=== PATIENT | female | born 2005 | race Caucasian/White ===

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

== ENCOUNTER 2023-04-24 00:15 | Emergency (ER) | payer OTHER, SELFPAY ==
[2023-04-24 00:16] VITALS: BP 122/71; PULSE 109; RESP 16; TEMP 36.2; O2SAT 99; BMI 22.0
--- NOTE | 2023-04-24 01:10 | EDS_ITS ---
HPI HPI - GI History of Present Illness Chief Complaint: Abd Pain Detail of Chief Complaint: Abdominal cramping. Nausea, vomiting and diarrhea. Informant: patient Abdominal Pain/Flank Pain Onset: Today Context: Gradual Onset Timing: Continuous Quality: Cramping Location: Diffuse Current Severity: Mild Maximum Severity: Mild Worsened by: Nothing Relieved by: Nothing Nausea/Vomiting/Emesis GI Symptom: Positive for Nausea and Vomiting Onset: Today Severity: Mild Diarrhea/Melena/Hematochezia GI Symptom: Positive for Diarrhea; Negative for Melena or Hematochezia Onset: Today Stool Quality: Positive for Loose Severity: Mild Associated Symptoms Associated Symptoms: Negative for Dysuria, Frequency, Hematuria or Urgency Narrative Narrative: 18-year-old female history of migraine headaches and anxiety. States she was called into work today. They are understaffed. She has been stressed all day and started the morning of the migraine headache. She developed abdominal cramping. Nausea, vomiting and diarrhea. [place] worse after eating pizza for dinner. Denies any dysuria. She does not have menstrual cycles and has not had one for more than a year due to a control implant. She has never been . G0, P0. She denies any vaginal bleeding or discharge. No fever. Prior similar symptoms: No Recent Illness/Hospitalization: No [facility] Medical History Nausea & vomiting Home Medications lansoprazole 15 mg capsule,delayed release (Prevacid) 15 mg PO DAILY 11/27/13 [History Last Taken 01/01/18] fexofenadine 60 mg tablet 60 mg PO DAILY 01/01/18 [History Last Taken 01/01/18] levonorgestrel 1.5 mg tablet (Take Action) 1.5 mg PO DAILY 01/01/18 [History [place] st Taken 01/01/18] ondansetron 4 mg disintegrating tablet 4 mg PO Q12H PRN PRN Nausea 01/01/18 [History Last Taken 01/01/18] rizatriptan 10 mg disintegrating tablet 10 mg PO PRN PRN bcp 01/01/18 [History Last Taken 1 Day Ago ~12/31/17] trazodone 50 mg tablet 50 mg PO QHS 01/01/18 [History Last Taken 1 Day Ago ~12/31/17] venlafaxine 37.5 mg capsule,extended release 24 hr 37.5 mg PO DAILY 01/01/18 [ History Last Taken 01/01/18] prochlorperazine maleate 10 mg tablet (Compazine) 10 mg PO TID PRN nausea and vomiting #21 tabs 11/07/22 [Rx Last Taken Unknown] omeprazole 20 mg capsule,delayed release 20 mg PO DAILY #30 CAPSULES 11/27/22 [Rx Last Taken Unknown] ondansetron 4 mg disintegrating tablet 4 mg PO Q8H PRN PRN Nausea #7 tabs 04/24/23 [Rx Last Taken Unknown] Allergy/AdvReac Type Severity Reaction Status Date / Time amoxicillin Allergy Unknown Verified 04/24/23 00:15 cat dander Allergy Itching Verified 04/24/23 00:15 amitriptyline AdvReac Other Verified 04/24/23 00:15 buspirone [From BuSpar] AdvReac Other Verified 04/24/23 00:15 cefdinir [From Omnicef] AdvReac Other Verified 04/24/23 00:15 escitalopram [From Lexapro] AdvReac Other Verified 04/24/23 00:15 fluoxetine HCl [From Prozac] AdvReac Other Verified 04/24/23 00:15 venlafaxine [From Effexor] AdvReac Other Verified 04/24/23 00:15 Social History Smoking Status: Never smoker ROS ROS ED ROS Narrative Abdominal cramping. Nausea, vomiting and diarrhea. Anxiety. Review of Systems ROS Unobtainable: Denies due to encephalopathy Constitutional Constitutional ED: Denies chills or fever(s) ENT ENT ED: Denies ear pain Cardiovascular Cardiovascular: Denies chest pain Respiratory/Chest Respiratory/Chest: Denies cough or dyspnea Gastrointestinal Gastrointestinal: Reports abdominal pain, diarrhea, nausea and vomiting; Denies constipation or melena Genitourinary Genitourinary ED: Denies dysuria or hematuria Musculoskeletal Musculoskeletal: Denies arthralgias or back pain Integumentary Denies abscess Neurologic Neurologic: Reports headache(s) Psychiatric Psychiatric: Reports anxiety Endocrine Endocrinology: Denies polydipsia Hematologic/Lymphatic Hematologic/Lymphatic: Denies easy bleeding Allergic/Immunologic Allergic/Immunologic ED: Denies mouth swelling, tongue swelling or urticaria EXAM Physical Exam Narrative Exam Narrative: Well-appearing 18-year-old female. Vital signs stable afebrile. H EENT exam unremarkable. Neck nontender no lymphadenopathy. Lungs clear to auscultation bilaterally. Heart regular rhythm no murmur. Abdomen soft, nondistended normal bowel sounds no peritoneal signs. Minimal tenderness. Not localizing. No hernia or mass. Moving all 4 extremities. Calves are nontender without edema or cords. Neurologic exam normal. No focal motor deficits. She is anxious. Const Vital Signs: 04/24/23 00:16 Temperature 97.2 F L Temperature Source Temporal Pulse Rate 109 H Respiratory Rate 16 Blood Pressure 122/71 H Blood Pressure Mean 88 Pulse Ox 99 Oxygen Delivery Method Room Air Positive well nourished and well developed; Negative for obese, cachectic or contractures General Appearance ED: well developed and NAD; Negative for cachectic, contractures or pallor Nutritional Appearance: Negative for cachectic or obese HEENT Reports moist mucous membranes normocephalic and atraumatic; Negative for trauma or tenderness Eyes PERRL and EOMs intact bilaterally General Eye ED: Negative for pale conjunctiva or scleral icterus Neck no lymphadenopathy, supple and no JVD General: Negative for tenderness Carotids: Negative for other Lymph Lymphatic: Negative for other Resp normal respiratory effort and clear to auscultation bilaterally Effort and Inspection: Negative for respiratory distress Auscultation: Negative for rales, rhonchi or wheezes Cardio regular rate, regular rhythm, S1 normal heart sound, S2 normal heart sound and no murmurs Rate: Negative for bradycardia or tachycardic Rhythm: Negative for abnormal rhythm GI non-distended and no masses; Negative for non-tender Inspection: Negative for abdominal distention Auscultation: normoactive bowel sounds Palpation: tender; Negative for guarding, rigid, hepatomegaly, splenomegaly, hernia, mass, pulsatile mass or rebound tenderness present Back/Spine no CVA tenderness General Back: Negative for CVA tenderness Cervical Spine: Negative for cervical spine tenderness Thoracic Spine / Upper Back: Negative for thoracic spinal tenderness Lumbar Spine / Lower Back: Negative for lumbar spinal tenderness Coccyx: Negative for other Extremity full ROM General Extremety ED: Negative for edema or tenderness General Extremity: Negative for edema Neuro CN's II-XII intact bilaterally and moves all extremities Sensorium / Orientation: alert, oriented to person, oriented to place and oriented to time; Negative for orientation impaired, confused, lethargic or stuporous Sensory Exam: No sensory level loss detected Motor Exam: strength 5/5 throughout Psych mental status grossly normal and thought process normal Appearance: Negative for other Attitude: No agitated Mood & Affect: anxious; Negative for depressed or tearful Skin no wounds General Skin Exam: Negative for jaundice or pallor Lesions: no lesions Rashes: no rashes MDM MDM MDM Narrative Medical decision making narrative: Patient is 18-year-old with abdominal cramping with nausea, vomiting and diarrhea. This may be second anxiety. Screening labs to be obtained. Treated with Zofran for nausea. IV fluids. Repeat exam at 2:07 AM doing well. Abdomen benign. We went over all of her test results. She will be discharged to home. Zofran as needed for nausea. Fluids and rest. Follow-up as needed. History & Record Review Discussion w/independent historian: Patient and Friend Lab Data Attestation: I reviewed the patient's lab results. Lab results narrative: CBC unremarkable. White count of 9. H&H 13.2 and 38. Platelets 273. CMP shows a potassium of 3.3. Gap is 6. Normal BUN and creatinine is 0.8. Liver enzymes normal. Glucose 120. Serum test negative. Urinalysis normal. No infection. Labs: Laboratory Results - last 24 hr 04/24/23 04/24/23 01:23 01:45 WBC 9.0 RBC 4.41 Hgb 13.2 Hct 38.7 MCV 87.8 MCH 29.9 MCHC 34.1 RDW Std Deviation 39.4 RDW Coeff of Chris 12.3 Plt Count 273 MPV 10.1 Immature Gran % (Auto) 0.100 Neut % (Auto) 67.2 Lymph % (Auto) 25.9 [place] % (Auto) 5.1 Eos % (Auto) 1.0 Baso % (Auto) 0.7 Absolute Neuts (auto) 6.0 Absolute Lymphs (auto) 2.32 Nucleated RBC % 0 Sodium 141 Potassium 3.3 L Chloride 110 H Carbon Dioxide 25.0 Anion Gap 6 BUN 15 Creatinine 0.86 Estim Creat Clear Calc 74.95 Est GFR (MDRD) Af Amer 108 Est GFR (MDRD) Non-Af 89 BUN/Creatinine Ratio 17.4 Glucose 120 H Calcium 9.8 Total Bilirubin 0.30 AST 13 L ALT 25 Alkaline Phosphatase 79 Total Protein 7.2 Albumin 4.1 Globulin 3.1 Albumin/Globulin Ratio 1.3 Lipase 25 Serum , Qual NEGATIVE Urine Color Yellow Urine Clarity Clear Urine pH 8.0 Ur Specific [place] 1.010 Urine Protein Negative Urine Glucose (UA) Normal Urine Ketones Negative Urine Occult Blood Negative Urine Nitrite Negative Urine Bilirubin Negative Urine Urobilinogen Normal Ur Leukocyte Esterase 25 H Urine RBC 0 SEEN Urine WBC 0-5 SEEN Ur Squamous Epith Cells 5-10 SEEN Urine Bacteria RARE Urine Mucus 0 SEEN Discharge Plan Triage Chief Complaint: Abd Pain ED Provider: Haroldo Almaguer Dx/Rx/DC Orders Clinical Impression: Vomiting and diarrhea, Anxiety, Abdominal pain Instructions: ED Anxiety Reaction, ED Vomiting and Diarrhea ... Prescriptions: New ondansetron 4 mg tablet,disintegrating 4 mg PO Q8H PRN PRN (Reason: Nausea) Qty: 7 0RF No Action lansoprazole [Prevacid] 15 MG capsule 15 mg PO DAILY venlafaxine 37.5 MG capsule 37.5 mg PO DAILY trazodone 50 MG tablet 50 mg PO QHS fexofenadine 60 MG tablet 60 mg PO DAILY rizatriptan 10 MG tablet,disintegrating 10 mg PO PRN PRN (Reason: bcp) ondansetron 4 MG tablet 4 mg PO Q12H PRN PRN (Reason: Nausea) levonorgestrel [Take Action] 1.5 MG tablet 1.5 mg PO DAILY prochlorperazine maleate [Compazine] 10 mg tablet 10 mg PO TID PRN (Reason: nausea and vomiting) Qty: 21 0RF omeprazole [omeprazole] 20 mg capsule,delayed release(DR/EC) 20 mg PO DAILY Qty: 30 0RF Primary Care Provider: Sharmin Melednez Referrals: Sharmin Melendez MD [Primary Care Provider] - 3-5 Days if not improving Activity Restrictions/Additional Instructions: Plenty of fluids and rest. Follow-up with your doctor as needed. Tylenol and/or Motrin for pain. Zofran as needed for nausea. Disposition Disposition: Home, Self Care
[2023-04-24] MEDS: Ondansetron 4 MG/2 ML Vial IV (01:20)
[2023-04-24] MEDS: 0.9% Normal Saline (1000mL) 1,000 ML 1000 ML IV (01:20)
[2023-04-24 01:29] LABS: Absolute Lymphocyte Count 2.32 X10^3/uL (0.83-4.51); Basophil# 0.06 X10^3/uL; Basophil% 0.7 % (0-1); Eosinophil# 0.09 X10^3/uL; Hematocrit 38.7 % (37-47); Hemoglobin 13.2 g/dL (12.0-15.0); Lymphocyte # 2.32 X10^3/ul (0.83-4.51); Lymphocyte % 25.9 % (19-41); Mean Corp Hgb Conc 34.1 g/dL (32-36); Mean Corpuscular Hgb 29.9 pg (27.0-32.0); Mean Corpuscular Volume 87.8 fL (81-99); Mean Platelet Vol. 10.1 fl (6.2-12.0); Monocyte# 0.46 X10^3/uL; Monocyte% 5.1 % (0-10); NRBC Flagged by Analyzer 0 % (0-5); Neutrophil # 6.02 X10^3/uL (2.7-7.7); Neutrophil % 67.2 % (47-70); Platelet Count 273 K/mm3 (150-450); RBC Distribution Width CV 12.3 % (11.6-14.6); RBC Distribution Width SD 39.4 fl (35.1-43.9); Red Blood Count 4.41 M/mm3 (4.2-5.4)
[2023-04-24 01:38] LABS: Internal QC Validated? YES +Cl - CLEAR BKGD; Pregnancy, Serum, hCG Quali. NEGATIVE Negative
[2023-04-24 01:46] LABS: ALB/GLOB Ratio 1.3 RATIO (0.9-2.4); AST(SGOT) 13 U/L (15-37); Alanine Aminotransfer ALT/SGPT 25 U/L (13-56); Albumin, Serum 4.1 g/dL (3.2-5.0); Alkaline Phosphatase 79 U/L (45-117); Anion Gap 6 (5-15); BUN 15 mg/dL (7-18); BUN/Creat Ratio 17.4 RATIO (10-20); Calcium,Total 9.8 mg/dL (8.5-10.1); Chloride 110 mmol/L (98-107); Creatinine, Serum 0.86 mg/dL (0.55-1.02); EST Glomerular Filtration Rate 89 mL/min (>60); Est Glom Filt Rate - Afr Amer 108 mL/min (>60); Estimated Creatinine Clearance 74.95 ml/min; Globulin 3.1 g/dL (2.2-4.2); Glucose 120 mg/dL (74-106); Lipase 25 U/L (13-75); Potassium 3.3 mmol/L (3.5-5.1); Protein, Total 7.2 g/dL (6.4-8.2); Sodium Level 141 mmol/L (136-145)
[2023-04-24 01:50] LABS: Color, Urine Yellow (Yellow); Glucose, Dipstick Normal (Normal); Ketone-Dipstick Negative (Negative); Leukocyte Esterase-Dipstick 25 /ul (Negative); Mucous, Urine 0 SEEN /hpf (<or=2+); Nitrite-Dipstick Negative (Negative); Occult Blood-Urine Negative /ul (Negative); Protein-Dipstick Negative (Negative); Red Blood Cells-Urine 0 SEEN /hpf (0-5); Urine Bilirubin Dipstick Negative (Negative); Urine Clarity Clear (Clear); Urine Urobilinogen Normal (Normal)
[2023-04-24 01:56] LABS: Bacteria RARE /hpf (None Seen); Squamous Epithelial Cells - UA 5-10 SEEN /hpf (5-10); White Blood Cells 0-5 SEEN /hpf (0-5)
[2023-04-24 02:27] VITALS: BP 114/63; PULSE 77; RESP 18; O2SAT 99
== END 2023-04-24 02:29 | disposition home or self-care (01) ==
PROVIDERS: Emergency Provider Emergency Medicine; PCP Internal Medicine; Visit Provider Emergency Medicine
DX: R19.7 Diarrhea, unspecified (principal); F41.9 Anxiety disorder, unspecified; R10.9 Unspecified abdominal pain; R11.10 Vomiting, unspecified; Z79.3 Long term (current) use of hormonal contraceptives
CPT/HCPCS: 80053; 81001; 83690; 84703; 85025; 96361; 96374; 99283; J7030; J2405

== ENCOUNTER 2024-02-16 15:51 | Emergency (ER) | payer OTHER, SELFPAY ==
[2024-02-16 15:52] VITALS: BP 126/77; PULSE 78; RESP 15; TEMP 36.6; O2SAT 99; BMI 21.4
--- NOTE | 2024-02-16 16:19 | EX.ED.UPPERE ---
HPI History of Present Illness HPI Narrative: Patient presents with pain to her left wrist that became worse today. Patient states she has had pain in her left breast for the past few months. Patient states that today she moved and the pain became severe. Patient states the pain is sharp. Patient states it is worse with movement. Patient states it is mainly over the dorsal aspect of her left wrist. Patient states if she moves her left thumb it also causes pain down into the dorsum of her left wrist. Patient denies any direct trauma or injury. Patient states she feels a snapping sensation in her thumb when she moves it. Patient states her pain is better with rest. Patient denies any paresthesias or weakness. Chief Complaint: Upper Extremity Injury Informant: patient Onset/Context/Timing Onset: Month(s) Context: Gradual Onset Timing: Continuous Quality of Pain: Sharp Location: Left wrist Worsened by: Movement Relieved by: Rest Associated Symptoms Associated Symptoms: Negative for Parasthesia, Weakness or Loss of Funtion [facility] Medical History Nausea & vomiting no medical history Home Medications ?Medication ?Instructions ?Recorded ?Last Taken ?Type lansoprazole 15 mg capsule,delayed 15 mg PO DAILY 11/27/13 01/01/18 History release (Prevacid) fexofenadine 60 mg tablet 60 mg PO DAILY 01/01/18 01/01/18 History levonorgestrel 1.5 mg tablet (Take 1.5 mg PO DAILY 01/01/18 01/01/18 History Action) ondansetron 4 mg disintegrating 4 mg PO Q12H PRN PRN Nausea 01/01/18 01/01/18 History tablet rizatriptan 10 mg disintegrating 10 mg PO PRN PRN bcp 01/01/18 1 Day Ago History tablet ~12/31/17 trazodone 50 mg tablet 50 mg PO QHS 01/01/18 1 Day Ago History ~12/31/17 venlafaxine 37.5 mg 37.5 mg PO DAILY 01/01/18 01/01/18 History capsule,extended release 24 hr prochlorperazine maleate 10 mg 10 mg PO TID PRN nausea and 11/07/22 Unknown Rx tablet (Compazine) vomiting #21 tabs omeprazole 20 mg capsule,delayed 20 mg PO DAILY #30 CAPSULES 11/27/22 Unknown Rx release ondansetron 4 mg disintegrating 4 mg PO Q8H PRN PRN Nausea #7 tabs 04/24/23 Unknown Rx tablet meloxicam 15 mg tablet 15 mg PO DAILY #10 tabs 02/16/24 Unknown Rx Allergy/AdvReac Type Severity Reaction Status Date / Time amoxicillin Allergy Unknown Verified 02/16/24 16:00 cat dander Allergy Itching Verified 02/16/24 16:00 amitriptyline AdvReac Other Verified 02/16/24 16:00 buspirone (From BuSpar) AdvReac Other Verified 02/16/24 16:00 cefdinir (From Omnicef) AdvReac Other Verified 02/16/24 15:51 escitalopram (From Lexapro) AdvReac Other Verified 02/16/24 16:00 fluoxetine HCl (From Prozac) AdvReac Other Verified 02/16/24 16:00 venlafaxine (From Effexor) AdvReac Other Verified 02/16/24 16:00 Surgical History no surgical history no surgical history Social History Smoking Status: Never smoker ROS ROS ED Constitutional Constitutional ED: Denies chills or fever(s) Eyes Eyes: Denies blurry vision or change in vision ENT ENT ED: Denies rhinorrhea or sore throat Cardiovascular Cardiovascular: Denies chest pain or palpitations Respiratory/Chest Respiratory/Chest: Denies cough or dyspnea Gastrointestinal Gastrointestinal: Denies nausea or vomiting Genitourinary Genitourinary ED: Denies dysuria or hematuria Musculoskeletal Musculoskeletal: Denies back pain or neck pain Integumentary Denies abscess or rash Neurologic Neurologic: Denies headache(s) or weakness Allergic/Immunologic Allergic/Immunologic ED: Denies mouth swelling or urticaria EXAM Physical Exam Const Vital Signs: 02/16/24 15:52 Temperature 98 F Temperature Source Temporal Pulse Rate 78 Respiratory Rate 15 Blood Pressure 126/77 H Blood Pressure Mean 93 Pulse Ox 99 Oxygen Delivery Method Room Air Positive well nourished and well developed General Appearance ED: well developed and NAD HEENT Reports moist mucous membranes Neck full ROM and supple Extremity Extremity Narrative: There is tenderness over the dorsal aspect of the left wrist. There is no edema or ecchymosis. There is no deformity noted. There is no erythema or warmth noted. Range of motion was limited in all motions of the left wrist secondary to pain. There is some mild tenderness in the first metacarpal area. There is pain with ulnar deviation of the left wrist. Strength is 5/5 in the radial, median, and ulnar areas. Sensation is intact to light touch in the radial, median, and ulnar areas. Radial pulses are equal bilaterally. Neuro oriented x3, CN's II-XII intact bilaterally, moves all extremities, no focal motor deficits and no sensory deficits noted Sensorium / Orientation: alert Motor Exam: strength 5/5 throughout Psych mental status grossly normal MDM MDM MDM Narrative Medical decision making narrative: Differential diagnosis includes occult fracture, tendinitis, and inflammatory arthritis. X-rays of the left wrist will be obtained to assess for occult fracture. Radiography Diagnostic Testing: X-rays of the left wrist were obtained. There are 3 views. On my independent interpretation, there is no occult fracture. There is no soft tissue swelling noted. Radiologist also interpreted the x-rays and agrees. Treatment and Re-Evaluation Narrative: Patient was given a thumb spica splint. Patient was given a dose of Naprosyn here. Patient is given a prescription for meloxicam. Patient was instructed to use ice to the area. Patient was instructed to follow-up with her primary care physician in 5 to 7 days. Patient understood and was agreeable with the plan. All questions were answered. Discharge Plan Triage Chief Complaint: Upper Extremity Injury ED Provider: Ab Cantu Dx/Rx/DC Orders Clinical Impression: Left wrist tendinitis Instructions: ED Tendonitis Prescriptions: New meloxicam 15 mg tablet 15 mg PO DAILY Qty: 10 0RF No Action lansoprazole [Prevacid] 15 MG capsule 15 mg PO DAILY venlafaxine 37.5 MG capsule 37.5 mg PO DAILY trazodone 50 MG tablet 50 mg PO QHS fexofenadine 60 MG tablet 60 mg PO DAILY rizatriptan 10 MG tablet,disintegrating 10 mg PO PRN PRN (Reason: bcp) ondansetron 4 MG tablet 4 mg PO Q12H PRN PRN (Reason: Nausea) levonorgestrel [Take Action] 1.5 MG tablet 1.5 mg PO DAILY prochlorperazine maleate [Compazine] 10 mg tablet 10 mg PO TID PRN (Reason: nausea and vomiting) Qty: 21 0RF omeprazole [omeprazole] 20 mg capsule,delayed release(DR/EC) 20 mg PO DAILY Qty: 30 0RF ondansetron 4 mg tablet,disintegrating 4 mg PO Q8H PRN PRN (Reason: Nausea) Qty: 7 0RF Primary Care Provider: Sharmin Melendez Referrals: Sharmin Melendez MD [Primary Care Provider] - 5-7 Days Print Language: Hebrew
[2024-02-16] MEDS: Naproxen 500 MG Tablet PO (16:27)
--- NOTE | 2024-02-16 16:33 | RAD_ITS ---
INDICATION: Injury/Pain EXAMINATION/TECHNIQUE: X-RAY - LEFT XR Wrist Min 3 Views COMPARISON: FINDINGS: SOFT TISSUES: No soft tissue swelling or gas. No radiopaque foreign body. BONES/JOINTS: No acute fracture or subluxation.. Normal alignment. Preservation of the joint space.. No sclerotic or destructive changes observed. RAD/Wrist min 3 Views IMPRESSION: No acute bony injury. Electronically Signed: Heron Zimmerman DO at 16:47 EDT ,
== END 2024-02-16 17:08 | disposition home or self-care (01) ==
LOC: ED 16:29
PROVIDERS: Emergency Provider Emergency Medicine; PCP Internal Medicine; Visit Provider Emergency Medicine
DX: M77.8 Other enthesopathies, not elsewhere classified (principal)
CPT/HCPCS: 73110; 99282

== ENCOUNTER 2024-10-15 07:07 | Emergency (ER) | payer OTHER, SELFPAY ==
[2024-10-15 07:08] VITALS: BP 115/72; PULSE 68; RESP 15; O2SAT 100
--- NOTE | 2024-10-15 07:09 | EKG12_ITS ---
Test Reason : CP Blood Pressure : */* mmHG Vent. Rate : 62 BPM Atrial Rate : 62 BPM P-R Int : 120 ms QRS Dur : 78 ms QT Int : 408 ms P-R-T Axes : 19 69 31 degrees QTcB Int : 414 ms Normal sinus rhythm Normal ECG Confirmed by AYLIN LEIVA, JANET ([id number]), proposal editor GRACE GREGG ([id number]) on 10/17/2024 8:23:26 AM Referred By: Confirmed By: JANET VIERA MD
[2024-10-15 07:13] VITALS: BP 121/74; PULSE 78; RESP 16; TEMP 36.8; O2SAT 100; BMI 21.7
--- NOTE | 2024-10-15 07:14 | ED.VIS.CHEST ---
HPI History of Present Illness Chief Complaint: Chest Pain Informant: patient Narrative Narrative: 19-year-old female presenting to the emergency room with chief complaint of chest pain abdominal pain vomiting diarrhea anxiety. Patient states that she went out with friends last night and ate dinner. She states that around 2330 hrs. she began to have a panic attack but work through it. She states that she then developed diarrhea and has had some vomiting. She notes a generalized abdominal pressure that is now spread to her chest. She notes that her arms and her legs feeling tingly and sometimes are hard to work. She states that she called her mom to let go back to her house to get her medications and because of a family history of her coronary disease mom asked her to come to emergency. She denies any fevers. She has been having sips of water but nothing to eat during the night. [facility] Medical History (Updated 10/15/24 @ 10:[address] Dimitry Hawthorne, DO) Autism Depression GERD (gastroesophageal reflux disease) Former smoker Migraines Nausea & vomiting Home Medications ?Medication ?Instructions ?Recorded ?Last Taken ?Type lansoprazole 15 mg capsule,delayed 15 mg PO DAILY 11/27/13 01/01/18 History release (Prevacid) fexofenadine 60 mg tablet 60 mg PO DAILY 01/01/18 01/01/18 History levonorgestrel 1.5 mg tablet (Take 1.5 mg PO DAILY 01/01/18 01/01/18 History Action) ondansetron 4 mg disintegrating 4 mg PO Q12H PRN PRN Nausea 01/01/18 01/01/18 History tablet rizatriptan 10 mg disintegrating 10 mg PO PRN PRN bcp 01/01/18 1 Day Ago History tablet ~12/31/17 trazodone 50 mg tablet 50 mg PO QHS 01/01/18 1 Day Ago History ~12/31/17 venlafaxine 37.5 mg 37.5 mg PO DAILY 01/01/18 01/01/18 History capsule,extended release 24 hr prochlorperazine maleate 10 mg 10 mg PO TID PRN nausea and 11/07/22 Unknown Rx tablet (Compazine) vomiting #21 tabs omeprazole 20 mg capsule,delayed 20 mg PO DAILY #30 CAPSULES 11/27/22 Unknown Rx release ondansetron 4 mg disintegrating 4 mg PO Q8H PRN PRN Nausea #7 tabs 04/24/23 Unknown Rx tablet meloxicam 15 mg tablet 15 mg PO DAILY #10 tabs 02/16/24 Unknown Rx ondansetron 4 mg disintegrating 4 mg PO Q6H PRN PRN Nausea #15 tabs 10/15/24 Unknown Rx tablet Allergy/AdvReac Type Severity Reaction Status Date / Time amoxicillin Allergy Unknown Verified 02/16/24 16:00 cat dander Allergy Itching Verified 02/16/24 16:00 amitriptyline AdvReac Other Verified 02/16/24 16:00 buspirone (From BuSpar) AdvReac Other Verified 02/16/24 16:00 cefdinir (From Omnicef) AdvReac Other Verified 02/16/24 15:51 escitalopram (From Lexapro) AdvReac Other Verified 02/16/24 16:00 fluoxetine HCl (From Prozac) AdvReac Other Verified 02/16/24 16:00 venlafaxine (From Effexor) AdvReac Other Verified 02/16/24 16:00 Social History Smoking Status: Former smoker ROS ROS ED Constitutional Constitutional ED: Reports sweats; Denies chills, fever(s) or weight loss Eyes Eyes: Denies change in vision or diplopia ENT ENT ED: Denies ear pain, rhinorrhea or sore throat Cardiovascular Cardiovascular: Reports chest pain; Denies orthopnea, palpitations or racing heartbeat Respiratory/Chest Respiratory/Chest: Denies cough, dyspnea or orthopnea Gastrointestinal Gastrointestinal: Reports abdominal pain, diarrhea, nausea and vomiting Genitourinary Genitourinary ED: Denies dysuria, hematuria or urinary frequency Musculoskeletal Musculoskeletal: Denies arthralgias or myalgias Integumentary Denies abscess or rash Neurologic Neurologic: Reports paresthesias; Denies headache(s) or weakness Psychiatric Psychiatric: Reports anxiety; Denies depression, suicidal ideation or suicidal thoughts Endocrine Endocrinology: Denies polydipsia, polyphagia or polyuria Allergic/Immunologic Allergic/Immunologic ED: Denies mouth swelling, tongue swelling or urticaria EXAM Physical Exam Const Vital Signs: 10/15/24 07:08 10/15/24 07:10 10/15/24 07:13 Temperature 98.2 F Temperature Source Temporal Pulse Rate 68 78 Respiratory Rate 15 16 Respiratory Effort Normal Non-Labored Blood Pressure 115/72 121/74 H Blood Pressure Mean 86 89 Pulse Ox 100 100 Oxygen Delivery Method Room Air Room Air 10/15/24 09:08 10/15/24 10:26 Temperature 98.1 F Temperature Source Pulse Rate 65 81 Respiratory Rate 17 11 L Respiratory Effort Blood Pressure 104/59 L 104/61 Blood Pressure Mean 74 75 Pulse Ox 98 100 Oxygen Delivery Method Room Air Positive well nourished and well developed General Appearance ED: well developed HEENT Reports normocephalic, head/scalp atraumatic and moist mucous membranes Eyes PERRL and EOMs intact bilaterally Neck no lymphadenopathy, supple and no JVD Resp clear to auscultation bilaterally Resp Narrative: Patient is tachypneic Cardio regular rate, regular rhythm and no murmurs GI normal to inspection, nondistended, normoactive bowel sounds and non-tender Palpation: soft Back/Spine no CVA tenderness and normal ROM Extremity normal to inspection General Extremety ED: Negative for edema General Extremity: Negative for edema Neuro oriented x3 and CN's II-XII intact bilaterally Sensorium / Orientation: alert Motor Exam: strength 5/5 throughout Psych Mood & Affect: anxious; Negative for depressed or tearful Skin no rashes or lesions noted and no wounds MDM MDM MDM Narrative Medical decision making narrative: Differential diagnosis includes anxiety reaction acute coronary syndrome pneumothorax pulmonary embolism aortic dissection/aneurysm gastroenteritis biliary colic pancreatitis Basic blood work including liver and lipase are negative. Troponin is less than 6. My independent interpretation a chest x-ray is no acute process. EKG is nonischemic and sinus rhythm. Patient received Toradol and Ativan has been resting more comfortably. I do not believe this to be pulmonary embolism. I do not believe she has aortic dissection based on the contours of the chest x-ray and good improvement of her symptoms with the medicines were provided. I think this is most likely to be anxiety reaction. She may certainly have a component of a gastroenteritis but certainly her anxiety could also result in some vomiting and diarrhea. I will write for some some Zofran at home. Patient to continue her home medications return if worsening or concerns History & Record Review Discussion w/independent historian: Patient Lab Data Attestation: I reviewed the patient's lab results. Labs: Laboratory Results - last 24 hr 10/15/24 07:41 WBC 9.0 RBC 4.71 Hgb 14.3 Hct 40.4 MCV 85.8 MCH 30.4 MCHC 35.4 RDW Std Deviation 37.8 RDW Coeff of Chris 12.0 Plt Count 308 MPV 10.5 Immature Gran % (Auto) 0.300 Neut % (Auto) 80.3 H Lymph % (Auto) 15.6 L [place] % (Auto) 3.1 Eos % (Auto) 0.1 Baso % (Auto) 0.6 Absolute Neuts (auto) 7.2 Absolute Lymphs (auto) 1.40 Nucleated RBC % 0 Sodium 141 Potassium 3.5 Chloride 107 Carbon Dioxide 20.2 L Anion Gap 13 BUN 11 Creatinine 0.83 Estim Creat Clear Calc 77.01 Est GFR (MDRD) Non-Af 102 BUN/Creatinine Ratio 12.7 Glucose 118 H Calcium 10.1 Total Bilirubin 0.58 Direct Bilirubin 0.31 H AST 22 ALT 17 Alkaline Phosphatase 68 Troponin T High Sens < 6 Total Protein 7.3 Albumin 4.6 Globulin 2.8 Lipase 19 Radiography Diagnostic Testing: Clinical Impression(s) from Imaging Studies Chest X-Ray 10/15/24 08:00 IMPRESSION: No acute process Reading Location: [facility] EKG Initial EKG: Attestation: I personally reviewed and interpreted this EKG as follows: Comments: Normal sinus rhythm ventricular rate of 62 bpm. There are no concerning features of ACS noted Prior EKG tracings: available for review Prior: Unchanged (Grossly unchanged from 01 January 2018) Discharge Plan Triage Chief Complaint: Chest Pain ED Provider: Dimitry Hawthorne Dx/Rx/DC Orders Clinical Impression: Anxiety, Chest pain, Abdominal pain, vomiting, and diarrhea Instructions: ED Anxiety Reaction Prescriptions: New ondansetron 4 mg tablet,disintegrating 4 mg PO Q6H PRN PRN (Reason: Nausea) Qty: 15 0RF No Action lansoprazole [Prevacid] 15 MG capsule 15 mg PO DAILY venlafaxine 37.5 MG capsule 37.5 mg PO DAILY trazodone 50 MG tablet 50 mg PO QHS fexofenadine 60 MG tablet 60 mg PO DAILY rizatriptan 10 MG tablet,disintegrating 10 mg PO PRN PRN (Reason: bcp) ondansetron 4 MG tablet 4 mg PO Q12H PRN PRN (Reason: Nausea) levonorgestrel [Take Action] 1.5 MG tablet 1.5 mg PO DAILY prochlorperazine maleate [Compazine] 10 mg tablet 10 mg PO TID PRN (Reason: nausea and vomiting) Qty: 21 0RF omeprazole [omeprazole] 20 mg capsule,delayed release(DR/EC) 20 mg PO DAILY Qty: 30 0RF ondansetron 4 mg tablet,disintegrating 4 mg PO Q8H PRN PRN (Reason: Nausea) Qty: 7 0RF meloxicam 15 mg tablet 15 mg PO DAILY Qty: 10 0RF Primary Care Provider: Sharmin Melendez Referrals: Sharmin Melendez MD [Primary Care Provider] - 3-5 Days if not improving Print Language: Macedonian Disposition Disposition: Home, Self Care
--- NOTE | 2024-10-15 08:00 | RAD_ITS ---
PROCEDURE: CHEST 1 VIEW (PORTABLE) N/A REASON FOR EXAM: CHEST PAIN TECHNIQUE: Frontal view of the chest. COMPARISON: Chest radiograph 01/01/2018 FINDINGS: Hardware: None Heart: Lungs: Clear. No airspace consolidation or interstitial thickening Bones: Normal Other: RAD/Chest 1 View (Portable) IMPRESSION: No acute process Reading [facility]
[2024-10-15 08:01] LABS: Absolute Neutrophil Count 7.2 X10^3/uL (2.0-7.7); Basophil# 0.05 X10^3/uL; Basophil% 0.6 % (0-1); Eosinophil# 0.01 X10^3/uL; Eosinophils% 0.1 % (0-5); Hematocrit 40.4 % (37-47); Hemoglobin 14.3 g/dL (12.0-15.0); Lymphocyte % 15.6 % (19-41); Mean Corp Hgb Conc 35.4 g/dL (32-36); Mean Corpuscular Hgb 30.4 pg (27.0-32.0); Mean Corpuscular Volume 85.8 fL (81-99); Mean Platelet Vol. 10.5 fl (6.2-12.0); Monocyte# 0.28 X10^3/uL; Monocyte% 3.1 % (0-10); NRBC Flagged by Analyzer 0 % (0-5); Neutrophil % 80.3 % (47-70); Platelet Count 308 K/mm3 (150-450); RBC Distribution Width SD 37.8 fl (35.1-43.9); Red Blood Count 4.71 M/mm3 (4.2-5.4)
[2024-10-15] MEDS: 0.9% Normal Saline (1000mL) 1,000 ML 1000 ML IV (08:26)
[2024-10-15] MEDS: Lorazepam 2 MG/ML WCH Syringe 1 MG IV (08:28)
[2024-10-15] MEDS: Ondansetron 4 MG/2 ML Vial IV (08:28)
[2024-10-15 08:50] LABS: AST(SGOT) 22 U/L (<=31); Alanine Aminotransfer ALT/SGPT 17 U/L (<=34); Albumin, Serum 4.6 g/dL (3.5-5.0); Alkaline Phosphatase 68 U/L (35-104); Anion Gap 13 (5-15); BUN 11 mg/dL (4-19); BUN/Creat Ratio 12.7 RATIO (10-20); Bilirubin, Direct 0.31 mg/dL (0.00-0.30); Calcium,Total 10.1 mg/dL (7.6-11.0); Carbon Dioxide 20.2 mmol/L (21.0-32.0); Chloride 107 mmol/L (98-108); Creatinine, Serum 0.83 mg/dL (0.70-1.20); EST Glomerular Filtration Rate 102 (>60); Estimated Creatinine Clearance 77.01 ml/min (50-250); Globulin 2.8 g/dL (2.2-4.2); Glucose 118 mg/dL (70-99); Lipase 19 U/L (13-75); Potassium 3.5 mmol/L (3.3-5.1); Protein, Total 7.3 g/dL (5.9-8.4); Sodium Level 141 mmol/L (133-145); Total Bilirubin 0.58 mg/dL (0.00-1.30)
[2024-10-15 09:08] VITALS: BP 104/59; PULSE 65; RESP 17; O2SAT 98
[2024-10-15 09:08] LABS: Troponin T High Sensitivity < 6 ng/L (<=14)
[2024-10-15 10:26] VITALS: BP 104/61; PULSE 81; RESP 11; TEMP 36.7; O2SAT 100
== END 2024-10-15 11:03 | disposition home or self-care (01) ==
PROVIDERS: Emergency Provider Emergency Medicine; PCP Internal Medicine; Visit Provider Emergency Medicine
DX: R07.9 Chest pain, unspecified (principal); R11.10 Vomiting, unspecified; F41.9 Anxiety disorder, unspecified; Z87.891 Personal history of nicotine dependence; R10.9 Unspecified abdominal pain; R19.7 Diarrhea, unspecified; K21.9 Gastro-esophageal reflux disease without esophagitis; Z79.899 Other long term (current) drug therapy; F32.A Depression, unspecified
CPT/HCPCS: 71045; 80048; 80076; 83690; 84484; 85025; 93005; 96361; 96374; 96375; 99285; J2405